=== PATIENT | female | born 1965 | race Caucasian/White ===

== ENCOUNTER → 2024-06-03 12:49 | Outpatient (REF) | payer OTHER, SELFPAY | LOC: WDC 12:49 | PROVIDERS: ATTENDING PHYSICIAN Family Medicine | DX: Z12.31 Encounter for screening mammogram for malignant neoplasm of breast (principal); R22.33 Localized swelling, mass and lump, upper limb, bilateral | CPT/HCPCS: 73140; 77063; 77067 ==

== ENCOUNTER 2025-02-23 20:29 | Emergency (ER) | payer BC, SELFPAY ==
[2025-02-23 20:31] VITALS: BP 160/106
[2025-02-23 22:08] VITALS: BP 143/90
--- NOTE | 2025-02-23 22:40 | ED.GENMED ---
History of Present Illness
General
Chief Complaint: Visual Problem
Time Seen by Provider: 02/23/25 22:12
History of Present Illness
History of Present Illness:
59-year-old female presents the emergency department for evaluation of a flashing white light in the left lateral visual field that began 2 to 3 hours prior to arrival. She denies any associated headache or visual loss with this. The white light
seems to have subsided but at this point she describes a 'moving floating object'. Denies eye pain, recent fevers or chills. No recent head or neck trauma. No recent jaw claudication. Does not wear corrective lenses
Past History
Past History
ED Past Medical History: Negative Asthma or Cancer
ED Past Surgical History: Negative Appendectomy
Social History
Tobacco: Non-smoker
Alcohol: None
Drug: None
Personal: Partner
Living: with family
Employment: Employed
Review of Systems
Review of Systems
Allergies reviewed?: Yes
All Other Systems: ROS reviewed and negative except as documented in HPI and ROS
Phy Exam
Physical Exam
Physical Exam:
GEN: Well appearing, NAD, WDWN
HEENT: Oral mucosa moist, no scleral icterus, no nasal congestion, pupils equal round and reactive to light, extraocular motions intact bilaterally with no limitation, no temporal artery tenderness bilaterally. IOP 16mmHg on R, 20mmHg on L
Cardiac: Regular rate
Lung: No respiratory distress, no tachypnea
MSK: No gross deformity or injuries
Skin: Good color, no pallor or jaundice, no rashes
Neuro: AO x3; CN II-XII grossly intact. BUE strength 5/5 in all bernal, sensation intact and symmetric. BLE strength 5/5 in all bernal, sensation intact and symmetric
Psych: Calm, cooperative
Course
Vital Signs
Initial and Last Documented VS:
Initial Vital Signs
Temp Pulse Resp BP Pulse Ox
98.2 F 102 19 160/106 99
02/23/25 20:31 02/23/25 20:31 02/23/25 20:31 02/23/25 20:31 02/23/25 20:31
Last Documented Vital Signs
Temp Pulse Resp BP Pulse Ox
98.2 F 98 16 143/90 97
02/23/25 20:31 02/23/25 22:08 02/23/25 22:08 02/23/25 22:08 02/23/25 22:45
MDM/Problems Addressed
MDM/Problems Addressed:
Patient is neurologically intact with no associated headaches or jaw claudication. Low clinical suspicion for temporal arteritis given lack of vision loss. No indication for CT of the head given lack of headache or vision loss. Limited bedside
ultrasound of the orbit performed on myself shows no evidence for retinal detachment. Intraocular pressure measurements are symmetric. Recommend outpatient ophthalmology follow-up
*Pulse Oximetry
SaO2: 97
Oxygen Mode of Delivery: Room air
Patient hypoxic: no
*Critical Care Note
Total Time (30-74mins, 75-104mins- exclusive of procedures): Not Applicable
ED Attending Note
-
Portions of this chart may have been created with voice recognition software.� Occasional wrong word or��sound alike� substitutions may have occurred due to the inherent limitations of voice recognition software.
Discharge Plan
Departure
Patient Disposition: Home (Routine Discharge)
Date of Disposition: 02/23/25
Time of Disposition: 22:44
Patient with high blood pressure during this ER visit?: No
Discharge Problem:
Visual floaters
Instructions: Floaters in the Eye
Prescriptions:
No Action
amoxicillin 875 mg tablet
875 mg PO BID Qty: 20 0RF
benzonatate 100 mg capsule
100 mg PO BID PRN (Reason: cough) Qty: 20 0RF
Referrals:
Lester Reynolds DO [Family Provider, Family Practice]
Jenni Maier MD [Active, Ophthalmology] - Call in 1-3 days for appt
Activity Restrictions/Additional Instructions:
Return to the ER if you develop severe headache, loss of vision, vomiting, or eye pain
Interventions
Interventions:
*Risk Screen - Suicide Last Done: 02/23/25 20:31
*General Assessment Last Done: 02/23/25 22:09
*Neglect/Abuse Screening Last Done: 02/23/25 20:31
*ED- Fall Risk Assessment Last Done: 02/23/25 22:09
*ED COVID-19 Vaccine History Last Done: 02/23/25 22:09
*ED Influenza Vaccine History Last Done: 02/23/25 22:09
*Nursing Disposition Last Done: 02/23/25 22:49
ED- Neurological Assessment Last Done: 02/23/25 22:09
ED-EENT Assessment Last Done: 02/23/25 22:09
ED Swallowing Screen Last Done: 02/23/25 22:09
Discharge Date and Time
Discharge Date/Time: 02/23/25 22:49
Print Language: GUINEAN
== END 2025-02-23 22:49 | disposition home or self-care (01) ==
LOC: EMR 20:29
PROVIDERS: EMERGENCY PHYSICIAN Emergency Medicine; FAMILY PHYSICIAN Family Medicine
DX: H43.392 Other vitreous opacities, left eye (principal)
CPT/HCPCS: 99284

== ENCOUNTER → 2025-03-27 08:57 | Outpatient (REF) | payer BC, SELFPAY | LOC: WDC 08:57 | PROVIDERS: ATTENDING PHYSICIAN Family Medicine | DX: N63.24 Unspecified lump in the left breast, lower inner quadrant (principal) | CPT/HCPCS: 76642; 77062; 77066 ==